=== PATIENT | male | born 1955 | race Caucasian/White ===

== ENCOUNTER 2023-07-07 08:35 | Outpatient (AMB) | payer MEDICARE, OTHER, SELFPAY ==
[2023-07-07 08:53] VITALS: BP 120/68; PULSE 77; TEMP 36.4; O2SAT 99; BMI 26.3
--- NOTE | 2023-07-07 08:53 | MHC.OFFWIV ---
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 He reports this has been causing him dizziness at times. He denies any cough, shortness of breath. ear pain, throat pain, fever or chills. Covid test at home was negative. Denies known exposure to sick contacts. ON LICENSE OF [facility] Social History Patient Tobacco Use Status: Never used Tobacco Review of Systems Const All systems reviewed & are unremarkable except as noted in HPI and below Physical Exam Vital Signs: Last Vital Signs Temp 97.5 F 07/07/23 08:53 Pulse 77 07/07/23 08:53 BP 120/68 07/07/23 08:53 Pulse Ox 99 07/07/23 08:53 Oxygen Delivery Method Room Air 07/07/23 08:53 BMI result Body Mass Index 26.3 Const General: cooperative, comfortable and no acute distress HEENT Head: Yes normal to inspection Ears: hearing grossly normal bilaterally General nose exam: Normal external nose present and Normal nasal mucous membranes and turbinates present Face and sinus: Yes sinus tenderness (frontal and maxillary) Neck Neck: Yes no lymphadenopathy Resp Effort & Inspection: normal respiratory effort and able to speak in complete sentences Auscultation: clear to auscultation bilaterally Cardio Jugular venous distension: no JVD Palpation: normal PMI Rate: regular rate Rhythm: regular rhythm Skin General skin exam: no rashes or lesions noted Extrem General: Yes capillary refill normal and Yes no clubbing, cyanosis or edema Psych Appearance: grossly normal Mental Status: mental status grossly normal Speech and movement: Normal speech and movement present Assessment & Plan Assessment & Plan (1) Acute frontal sinusitis: Code(s): J01.10 - Acute frontal sinusitis, unspecified Qualifiers: Recurrence: non-recurrent Qualified Code(s): J01.10 - Acute frontal sinusitis, unspecified Plan: Will start patient on a z-pack and also meclizine for any ongoing dizziness. Reviewed indications, use, possible s/e for medication. Advised he also try some otc decongestants and increase hydration. He will return to the clinic if he does not improve with treatment or if symptoms worsen. He verbalizes understanding and agrees to plan. Medications: New azithromycin For 250 mg dose pack: take 500 mg today (day 1), then 250 mg for 4 days (days 2-5) PO 6 tabs 0RF J01.10 - Acute frontal sinusitis, unspecified meclizine Take one tablet as needed for dizziness up to twice a day. 25 mg PO BID PRN 10 tabs 0RF dizziness J01.10 - Acute frontal sinusitis, unspecified Coding Level of Care Code Est Pt Level 3 (26166) Diagnoses Acute non-recurrent frontal sinusitis J01.10 Recurrence: non-recurrent
== END 2023-07-07 09:30 | disposition home or self-care (01) ==
PROVIDERS: Visit Provider Nurse Practitioner Family
DX: J01.10 Acute frontal sinusitis, unspecified (principal)
CPT/HCPCS: 99213

== ENCOUNTER 2023-11-08 11:49 | Outpatient (AMB) | payer MEDICARE, OTHER, SELFPAY ==
[2023-11-08 11:59] VITALS: BP 100/60; PULSE 97; TEMP 36.9; O2SAT 96; BMI 26.7
--- NOTE | 2023-11-08 11:59 | AM.OFFWIN_ITS ---
Intake Vital Signs 11/08/23 11:59 Height 5 ft 10 in Weight 186 lb BMI 26.7 BP 100/60 Blood Pressure Location Lt brachial Position Sitting Pulse 97 Pulse Source Pulse Oximeter Temp 98.4 F Temp Source Oral Pulse Oximetry (%) 96 Oxygen Delivery Method Room Air Intake Visit Reasons: EP UTI Intake Note: Pt is here today unable to urinate and chills Patient Tobacco Use Status: Never used Tobacco Allergies No Known Allergies Allergy (Verified 11/08/23 12:00) HPI EP UTI HPI Details Patient is a 68-year-old male comes to the walk-in clinic complaining of a few days of voiding symptoms that started a few days after feeling chills and body aches. He reports that he has the urgency to void, but feels like emptying is incomplete, as well as urinary hesitancy. He does have a history of benign prostatic hypertrophy and takes medication for this. He does have a baseline feeling of tightness or heaviness to the prostate on a regular basis. He reports that he does also have a history of urethral stricture in the past, and required catheter for this. He reports that there is scar tissue due to this. He sees a urologist in [place] and he had contacted them with the symptoms and was advised to go to the urgent care to rule out a urinary tract infection. He also worries as he has lumbosacral disc issues, with chronic back pain that he treats with Tylenol and Advil. He is aware of cauda equina symptoms, and was worried that he might be having an issue related to that. Does not have any incontinence issues, or issues with stopping his voiding stream as needed. There is no bowel incontinence or bowel changes. No saddle anesthesia reported. His back pain is overall stable and controlled. He denies documented fever, weakness or dizziness, abdominal pain, chest pain, upper back pain, nausea vomiting or diarrhea, anorexia, or other significant associated symptoms. [facility] Social History Patient Tobacco Use Status: Never used Tobacco Review of Systems Const All systems reviewed & are unremarkable except as noted in HPI and below Physical Exam Vital Signs: Last Vital Signs Temp 98.4 F 11/08/23 11:59 Pulse 97 11/08/23 11:59 BP 100/60 11/08/23 11:59 Pulse Ox 96 11/08/23 11:59 Oxygen Delivery Method Room Air 11/08/23 11:59 BMI result Body Mass Index 26.7 Const General: cooperative, healthy appearing, comfortable, no acute distress, alert, awake, Physically active and well groomed; No anxious, diaphoretic, ill appearing, intoxicated appearing, poor hygiene or tired appearing Nutritional Appearance: average body habitus Orientation/consciousness: oriented to person Limitations: no limitations Resp Effort & Inspection: normal respiratory effort Cardio Rate: regular rate General: Yes no CVA tenderness Back/Spine/Pelvis Back: no CVA tenderness Skin Other: Good color, warm and dry Neuro General: oriented to person Psych Appearance: grossly normal Mental Status: mental status grossly normal Speech and movement: Normal speech and movement present Affect: normal affect Attitude: cooperative Thought process: Normal thought process present Insight: Good insight present (Psych) Judgement: Good judgement present (Psych) Results AMB Urinalysis, Automated UA Leukoctes 0 William/uL Last Edit by Gwendolyn West CMA on 11/08/23 12:22 UA Nitrite Negative Last Edit by Gwendolyn West CMA on 11/08/23 12:22 UA Urobilinogen 0.2 mg/dL Last Edit by Gwendolyn West CMA on 11/08/23 12:22 UA Protein 0 mg/dL Last Edit by Gwendolyn West CMA on 11/08/23 12:22 UA pH 6.0 Last Edit by Gwendolyn West CMA on 11/08/23 12:22 UA Blood 0 Duane/uL Last Edit by Gwendolyn West CMA on 11/08/23 12:22 UA Specific [place] 1.010 Last Edit by Gwendolyn West CMA on 11/08/23 12:22 UA Ketone Negative Last Edit by Gwendolyn West CMA on 11/08/23 12:22 UA Bilirubin 0 mg/dL Last Edit by Gwendolyn West CMA on 11/08/23 12:22 UA Glucose 0 mg/dL Last Edit by Gwendolyn West CMA on 11/08/23 12:22 Assessment & Plan Assessment & Plan (1) Acute urinary retention: Code(s): R33.8 - Other retention of urine Plan: Patient is a 68-year-old male comes to the walk-in clinic complaining of a few days of apparent somewhat acute urinary retention. He is able to void, but has urinary hesitancy, possible voiding changes and the feeling of incomplete emptying. There is no dysuria, pyuria, penile discharge or lesions. He has a history of benign prostatic hypertrophy for which he is taking oral medication, as well as a urethral stricture in the past. He reports feeling myalgias and malaise, but no documented fever although he does take Tylenol and Motrin regularly for his back pain, and now for the body aches. His urine dip today is unremarkable, but we will send it out for microscopy and urinalysis to be sure that this is not infectious. He does report feeling a sensation tightness or heaviness to prostate area, which is baseline for him apparently, but could possibly be to to acute bacterial prostatitis. I will write him for a course of Bactrim, which would treat a possible UTI, and also cover prostatitis. He does not have symptoms overly suggestive of cauda equina syndrome, and his chronic back pain is stable and controlled. We discussed further management can not be done at the walk-in, and I advised him calling his urologist on Friday to report his symptoms, or he should go to the emergency department in the meantime if he develops any worsening symptoms. Orders: Orders UA CC w/rflx Micro + Cult Today R30.0 - Dysuria AMB Urinalysis Automated Today Z13.9 - Encounter for screening, unspecified Medications: New sulfamethoxazole-trimethoprim 800-160 mg (Bactrim DS) 1 tab PO BID 10 days 20 tabs 0RF Coding Level of Care Code Est Pt Level 4 (75225) Diagnoses Acute urinary retention R33.8
== END 2023-11-08 13:52 | disposition home or self-care (01) ==
PROVIDERS: Visit Provider Physician Assistant Medical
DX: Z13.9 Encounter for screening, unspecified (principal); R33.8 Other retention of urine
CPT/HCPCS: 81003; 99214

== ENCOUNTER 2023-11-08 13:34 | Outpatient (REF) | payer MEDICARE, OTHER, SELFPAY ==
[2023-11-08 13:44] LABS: Appearance Urine Clear; Color Urine Yellow; Glucose Urine UA Negative (Negative); Leukocyte Esterase Urine Negative (Negative); Nitrite Urine Negative (Negative); Urine Blood Negative (Negative); Urine Ketones Negative (Negative); Urine Protein Negative (Neg-Trace)
== END 2023-11-08 13:35 | disposition home or self-care (01) ==
LOC: HO.LNP 13:34
PROVIDERS: Visit Provider Physician Assistant Medical
DX: R30.0 Dysuria (principal)
CPT/HCPCS: 81003

== ENCOUNTER 2025-03-07 07:51 | Outpatient (REF) | payer MEDICARE, OTHER, SELFPAY ==
[2025-03-07 11:12] LABS: Resp Syncy Virus RNA Qual PCR NEGATIVE (Negative); SARS COV2 PCR INHOUSE NEGATIVE (Negative)
== END 2025-03-07 07:52 | disposition home or self-care (01) ==
LOC: HO.LAB 07:51
PROVIDERS: Visit Provider Nurse Practitioner Family
DX: J06.9 Acute upper respiratory infection, unspecified (principal); R50.9 Fever, unspecified; R10.13 Epigastric pain; Z11.52 Encounter for screening for COVID-19
CPT/HCPCS: 87637; 99212

== ENCOUNTER 2025-03-07 07:51 | Outpatient (AMB) | payer MEDICARE, OTHER, SELFPAY ==
--- OUTSIDE RECORDS SUMMARY | 2025-03-07 07:53 | XMS_ITS | Clinical Summary ---
Author Organization [facility] it Address [address] [place] [address] Care Team Providers Care Special Education Administrator Name Role Phone Unavailable Primary Care Provider Unavailabl e Medications omeprazole (PriLOSEC) [address] capsuleIndicatio ns:Gastroesophag eal reflux disease without esophagitis TAKE 1 CAPSULE BY MOUTH EVERY DAY 30 capsule 3 11/23/2024 Active Social History Tobacco Use Types Packs/Day Years Used Date Smoking Tobacco: Never Assessed Sex and Gender Information Value Date Recorded Sex Assigned at Not on file Legal Sex Male 8:38 PM EST Gender Identity Not on file Sexual Orientation Not on file Plan of Treatment Health Maintenance Due Date Last Done Comments DTaP,Tdap,and Td Vaccines (1 - Tdap) 1976 Pneumococcal Vaccine: 50+ Ye ars (1 of 1 - PCV) 2007 Zoster Vaccines (1 of 2) 2007 Abdominal Aortic Aneurysm (A AA) Screen 08/22/2023 Cholesterol Screening (Lipid Panel) 08/22/2023 Colorectal Cancer Screening: Colonoscopy 08/22/2023 Falls Risk Assessment 08/22/2023 Hepatitis C Screening 08/22/2023 Social Influencers of Health Screening 08/22/2023 COVID-19 Vaccine (1 - 2023-2 5 season) 2024 Depression Screening 07/28/2024 Influenza Vaccine (#1) 2025 RSV Immunization Adult Patie nts (1 - 1-dose 75+ series) 2032 HIB Vaccines Aged Out No longer eligi ble based on patient's age to complete this topic HPV Vaccines Aged Out No longer eligi ble based on patient's age to complete this topic Hepatitis A Vaccines Aged Out No long er eligible based on patient's age to complete this topic Hepatitis B Vaccines Aged Out No long er eligible based on patient's age to complete this topic IPV Vaccines Aged Out No longer eligi ble based on patient's age to complete this topic MMR Vaccines Aged Out No longer eligi ble based on patient's age to complete this topic Meningococcal ACWY Vaccine Aged Out N o longer eligible based on patient's age to complete this topic Meningococcal B Vaccine Aged Out No l onger eligible based on patient's age to complete this topic RSV Immunization Patients Un janes 20 months Aged Out No longer eligible b ased on patient's age to complete this topic Varicella Vaccines Aged Out No longer eligible based on patient's age to complete this topic
--- NOTE | 2025-03-07 08:00 | AM.OFFWIN_ITS ---
Intake Vital Signs 03/07/25 08:03 Height 5 ft 10 in Weight 175 lb BMI 25.1 BP 104/66 Blood Pressure Location Rt brachial Position Sitting Pulse 86 Pulse Source Pulse Oximeter Temp 98.6 F Temp Source Oral Pulse Oximetry (%) 98 Oxygen Delivery Method Room Air Intake Visit Reasons: EP Fever, body aches - recent travel ([facility]) Intake Note: presents with body aches, fevers, restlessness, indigestion- unable to eat significant meals, feeling run down. returned from [facility] 3 days ago Patient Tobacco Use Status: Never used Tobacco Allergies No Known Allergies Allergy (Verified 03/07/25 08:07) Do you need a note to return to daycare/school/sports/work: No HPI HPI Comments History of Present Illness Details 69 y/o Male patient who presents to the walk in clinic with c/o subjective fevers, body chills, Fatigue, poor appetite and indigestion since Friday. Denies Diarrhea but reports mild constipation, last Bowel was Friday. He just returned from [facility] 3 days ago. Reports negative Home COVID Tests. [facility], [facility] Medical History (Updated 03/07/25 @ 08:29 by Kya Lundberg NP) Acute respiratory disease Epigastric abdominal pain Social History Patient Tobacco Use Status: Never used Tobacco Review of Systems Const All systems reviewed & are unremarkable except as noted in HPI and below Physical Exam Vital Signs: Last Vital Signs Temp 98.6 F 03/07/25 08:03 Pulse 86 03/07/25 08:03 BP 104/66 03/07/25 08:03 Pulse Ox 98 03/07/25 08:03 Oxygen Delivery Method Room Air 03/07/25 08:03 BMI result Body Mass Index 25.1 Const General: no acute distress Orientation/consciousness: patient oriented x3 HEENT Head: Yes normocephalic Ears: external ears normal and TM abnormal obstructed by cerumen bilateral General nose exam: Normal external nose present Face and sinus: Yes sinuses nontender Mouth: moist mucous membranes Throat: Yes uvula midline Resp Effort & Inspection: normal respiratory effort Auscultation: clear to auscultation bilaterally Cardio Heart sounds: S1 normal heart sound present and S2 normal heart sound present GI Inspection: Yes Abdominal panniculus present Palpation (GI): Soft to palpation, not firm, Tenderness to palpation present (GI) in the epigastrum, no guarding and No hepatosplenomegaly present Auscultation: Hypoactive bowel sounds present Rectal Exam - Male: Yes deferred Neuro General: patient oriented x3, gait normal and moves all extremities Assessment & Plan Assessment & Plan (1) Epigastric abdominal pain: Code(s): R10.13 - Epigastric pain Plan: Omeprazole for indigestion Ordered SARs due to recent travel Advised the use of Home remedies. Orders: Orders SARS-CoV2/FLU/RSV Today J06.9 - Acute upper respiratory infection, unspecified Medications: New omeprazole 40 mg PO DAILY 20 caps 0RF R10.13 - Epigastric pain Coding Level of Care Code Est Pt Level 4 (71677) Diagnoses Epigastric abdominal pain R10.13 Time Spent (min) 20
[2025-03-07 08:03] VITALS: BP 104/66; PULSE 86; TEMP 37; O2SAT 98; BMI 25.1
== END 2025-03-07 08:25 | disposition home or self-care (01) ==
PROVIDERS: Visit Provider Nurse Practitioner Family
DX: R10.13 Epigastric pain (principal)